=== PATIENT | male | born 1970 | race Caucasian/White ===

== ENCOUNTER 2017-11-06 19:03 | Emergency (ER) | payer SELFPAY ==
[~2017-11-06] VITALS: Ht 185.4 cm; Wt 70.0 kg
[2017-11-06 19:09] VITALS: BP 140/88
== END 2017-11-06 20:13 | disposition home or self-care (01) ==
LOC: ED 20:07
DX: R21 Rash and other nonspecific skin eruption (principal)
CPT/HCPCS: 99283

== ENCOUNTER 2017-11-13 01:01 | Emergency (ER) | payer SELFPAY ==
[~2017-11-13] VITALS: Ht 182.9 cm; Wt 75.0 kg
[2017-11-13 01:19] VITALS: BP 132/80
== END 2017-11-13 02:00 | disposition left against medical advice (07) ==
LOC: ED 01:14
DX: Z02.89 Encounter for other administrative examinations (principal); F39 Unspecified mood [affective] disorder; Z72.89 Other problems related to lifestyle
CPT/HCPCS: 99283